=== PATIENT | male | born 1985 | race African-American/Black ===

== ENCOUNTER 2024-10-20 12:54 | Emergency (ER) | payer SELFPAY ==
--- NOTE | 2024-10-20 12:56 | ED.GENADULT ---
HPI - General Adult General Chief complaint: Dizziness Stated complaint: DIZZY Time Seen by Provider: 10/20/24 13:12 Source: patient and RN notes reviewed Mode of arrival: ambulatory Limitations: no limitations History of Present Illness HPI narrative: 39-year-old male presents to the [facility] with complaints of dizziness. Patient reports sudden onset feeling off balance since October 13. States it has been intermittent since. Has a history of something similar, 2-3 years ago. Denies any nausea vomiting or vision changes. No neuro deficits. Walks with a normal gait. Facial symmetry noted. Strong in all 4 extremities. Patient verbalized concerns for blood pressure as well as ?being pre diabetic Onset (ago): day(s) (8) Treatments prior to arrival: none Related Data Home Medications ?Medication ?Instructions ?Recorded ?Confirmed ?Last Taken ?Type ergocalciferol (vitamin D2) 1,250 10/20/24 Unknown History mcg (50,000 unit) capsule multivitamin tablet 10/20/24 Unknown History Allergies Allergy/AdvReac Type Severity Reaction Status Date / Time No Known Allergies Allergy Verified 10/20/24 13:12 Review of Systems Review of Systems: All systems reviewed & are unremarkable except as noted in HPI and below Constitutional: Constitutional: Reports no additional constitutional complaints ENT: Reports system reviewed and no additional complaints, except as documented Cardiovascular: Cardiovascular: Reports no additional cardiovascular complaints, Denies chest pain and Denies dyspnea Respiratory: Respiratory: Reports no additional respiratory complaints, Denies chest congestion, Denies cough and Denies dyspnea Musculoskeletal: Musculoskeletal: Reports no additional musculoskeletal complaints Integumentary/Breasts: Skin/Breast: Reports system reviewed and no additional complaints, except as docu Neurologic: Reports as per HPI and Reports dizziness PMFSH Comments At the time of my signature, I reviewed and agree with the nursing past medical, surgical, social, and family history. There is no relevant family history pertinent to the patient complaint. Exam Const: General: cooperative, healthy appearing, comfortable, no acute distress, well developed, alert and well nourished Nutritional Appearance: well nourished and obese Orientation/consciousness: patient oriented x3 Limitations: no limitations HENMT: Head: normal to inspection Ears: hearing grossly normal bilaterally, external ears normal, TM's normal bilaterally, EAC's normal, mastoids normal and no periauricular adenopathy Mouth: Yes Normal oral and palatal mucosa present, Yes lip normal, Yes tongue normal and Yes moist mucous membranes Throat: posterior oropharynx normal, uvula midline and no uvular edema Eyes: General: appearance normal, both eyes and all related structures Alignment and Position: alignment normal Neck: Neck: normal visual inspection, full ROM, no lymphadenopathy and no meningeal signs Chest: Chest palpation & inspection: normal inspection of the chest Resp: Effort & Inspection: normal respiratory effort and able to speak in complete sentences Auscultation: clear to auscultation bilaterally, no crackles, no rales, no rhonchi and no wheezes Cardio: Rate: regular rate Skin: General skin exam: normal color and no rashes or lesions noted Neuro: General: patient oriented x3, gait normal, moves all extremities and no meningeal signs Cognition (Neuro): normal cognition Speech: normal speech Gait exam (Neuro): Normal gait present Extrem: General: normal to inspection, full ROM, capillary refill normal and normal gait Psych: Appearance: grossly normal and well kempt Mental Status: mental status grossly normal Speech and movement: Normal speech and movement present and Clear speech present Affect: normal affect Attitude: cooperative Course Course Level of Care: Express Care Visit Vital Signs Vital signs: Vital Signs Temperature 97.7 F 10/20/24 13:03 Pulse Rate 61 10/20/24 13:03 Respiratory Rate 16 10/20/24 13:03 Blood Pressure 157/97 H 10/20/24 13:03 Pulse Oximetry 99 10/20/24 13:03 Temperature 97.7 F 10/20/24 13:03 Pulse Rate 61 10/20/24 13:03 Respiratory Rate 16 10/20/24 13:03 Blood Pressure 157/97 H 10/20/24 13:03 Pulse Oximetry 99 10/20/24 13:03 Reviewed Medical Decision Making MDM Narrative Medical decision making narrative: Patient sitting comfortably in exam room. Nontoxic, vitals stable. Patient in no acute distress Patient presents for intermittent dizziness, none currently on exam. Patient verbalized concerns for being prediabetic as well as blood pressure issues. Referred patient back to primary care for provider due to elevated blood pressure reading. Patient appropriate for outpatient treatment with strict signs and symptoms to proceed to the emergency room especially if the dizziness returns or gets worse. Discharge instructions reviewed with patient, as well as provided in writing per nursing staff. The instructions also include specific and strict return/GO TO THE ER as well as f/u information. All questions have been answered, and the patient deny any further questions with discharge and discharge plan. Some parts of this dictation were generated by voice recognition software and may contain typographical and/or grammatical inaccuracies. Differential Diagnosis Differential Diagnosis: Vertigo, sinusitis, otitis Medical Records Medical records reviewed: Yes I reviewed the external patient's medical records. Vital Signs Vital Signs: Vital Signs Temperature 97.7 F 10/20/24 13:03 Pulse Rate 61 10/20/24 13:03 Respiratory Rate 16 10/20/24 13:03 Blood Pressure 157/97 H 10/20/24 13:03 Pulse Oximetry 99 10/20/24 13:03 Temperature 97.7 F 10/20/24 13:03 Pulse Rate 61 10/20/24 13:03 Respiratory Rate 16 10/20/24 13:03 Blood Pressure 157/97 H 10/20/24 13:03 Pulse Oximetry 99 10/20/24 13:03 Reviewed Lab Data Lab results reviewed: Yes I reviewed the patient's lab results. Labs: Reviewed Critical Care Time Critical Care Time Critical Care Time: No Discharge Plan Discharge Clinical Impression: Dizziness Patient Disposition: Home, Self-Care Condition: Stable Instructions: Antibiotic Form, Vertigo (ED), Dizziness (ED) Additional Instructions: follow-up with your primary care provider this week without fail. Today your blood pressure was 157/97. If your symptoms get worse please go directly to the emergency room for a further evaluation, testing and treatment Patient Language: Sudanese Prescriptions: New meclizine 25 mg tablet 25 mg PO BID PRN (Reason: dizziness) Qty: 10 0RF No Action multivitamin Tablet ergocalciferol (vitamin D2) 1,250 mcg (50,000 unit) capsule Follow-up/Referrals: UNKNOWN,DOCTOR [Non-Staff] - Stand Alone Forms: Work/School Release IP Time of Disposition: 13:21
[2024-10-20 13:03] VITALS: BP 157/97; PULSE 61; RESP 16; TEMP 36.5; O2SAT 99
== END 2024-10-20 13:30 | disposition home or self-care (01) ==
PROVIDERS: Emergency Provider Nurse Practitioner
DX: R42 Dizziness and giddiness (principal); R03.0 Elevated blood-pressure reading, without diagnosis of hypertension
CPT/HCPCS: 99203; G0463